=== PATIENT | male | born 1990 | race African-American/Black ===

== ENCOUNTER 2017-02-01 03:17 | Emergency (ER) | payer MEDICAID ==
--- NOTE | 2017-02-01 03:46 | ED Physician Chart ---
ED Chief Complaint/HPI - Patient Information Date Seen:: 02/01/17 Time Seen:: 03:35 Chief Complaint:: Toothache for 2 days. History of Present Illness:: Pt came in by private auto because of toothache in R lower jaw for 2 days. Pt denies fever. Taking po well without N/V/D. Last analgesic use with Aleve at about 6 pm yesterday. Allergies:: Allergies Allergy/AdvReac Type Severity Reaction Status Date / Time No Known Allergies Allergy Verified 02/01/17 03:24 Vitals:: Vital Signs - 8 hr 02/01/17 03:20 Temp 98.1 F HR 76 RR 18 BP 135/88 O2 Sat % 97 Historian:: Patient Family MD/PCP:: unknown LMP:: N/A Review:: Nurse's Note Reviewed ED Review of Systems - Review of Systems General/Constitutional: No fever, No chills, No weight loss, No weakness, No edema, No loss of appetite Skin: No skin lesions, No rash, No bruising Head: No headache, No light-headedness Eyes: No loss of vision, No pain, No diplopia ENT: No earache, No sore throat Neck: No neck pain, No swelling, No thyromegaly, No stiffness, No mass noted Cardio Vascular: No chest pain, No palpitations Pulmonary: No SOB, No cough, No wheezing GI: No nausea, No vomiting, No diarrhea, No pain G/U: No dysuria, No frequency, No hematuria Musculoskeletal: No bone or joint pain, No back pain Endocrine: No polyuria, No polydipsia Psychiatric: No prior psych history Hematopoietic: No bruising, No lymphadenopathy Allergic/Immuno: No urticaria, No angioedema Neurological: No syncope, No focal symptoms, No weakness, No paresthesia, No headache, No dizziness, No confusion ED Past Medical History - Past Medical History Past Medical History: No significant medical hx Family History: Diabetes Melitus (MGM, PGM), HTN (mother) Social History: Non Smoker, Alcohol (occasional), No Drug Use, Single, Employed , Other (lives with his sister) Employment:: surveyor's assistant. Surgical History: other (R hand surgery about 20 y/a.) Psychiatricy History: None Medication: Reviewed Family Medical History - Family Member Grandmother Ethnicity: Non- Hx Family Hypertension: Yes Hx Family Diabetes: Yes ED Physical Exam - Physical Examination General/Constitutional: Awake, Well-developed, well-nourished, Alert, No distress, GCS 15, Non-toxic appearing, Ambulatory Other Gen/Cons comments:: Breathes comfortably, speaks clearly, interacts normally, and ambulates without difficulty. Head: Atraumatic Eyes: Lids, conjuctiva normal, PERRL, EOMI Skin: Nl inspection, No rash, No skin lesions, No ecchymosis, Well hydrated, No lymphadenopathy ENMT: External ears, nose nl, Nasal exam nl, Oropharynx nl Other ENMT comments:: Black discoloration noticed in R lower 2nd molar tooth with tenderness. No gingival erythema or edema. No exudate. Neck: Nontender, Full ROM w/o pain, No nuchal rigidity, No mass, No stridor Respiratory: Nl effort/Exclusion, Clear to Auscultation, No Wheeze/Rhonchi/Rales Cardio Vascular: RRR, No murmur, gallop, rubs GI: No tenderness/rebounding/guarding, No organomegaly, Normal BS's, Nondistended Other GI comments:: Abdomen is soft. Extremities: No edema Neuro/Psych: Alert/oriented (oriented x 3), Mood normal, Normal gait, No focal deficits ED Septic Shock - . Is Septic Shock (SBP<90, OR Lactate>4 mmol\L) present?: No - <6hrs of presentation: Vital Signs: Vital Signs - 8 hr 02/01/ 03:20 Temp 98.1 F HR 76 RR 18 BP 135/88 O2 Sat % 97 ED Reassessment (Disposition) - Reassessment Reassessment:: 0400 Pt remains stable. Pt requests to leave now and prefers to take his medications at home. Aftercare instructions have been given. - Diagnosis Diagnosis:: Pulpitis in R lower 2nd molar tooth. Stable - Aftercare/Follow up Instructions Aftercare/Follow-Up Instructions:: Refer to Discharge Instructions Notes:: Avoid extreme hot or cold beverage or food. May continue Aleve as directed. F/U with dentist of pt's choice later today. Return to ER immediately if condition worsens or if any further questions/problems. Medication Prescribed:: Amoxicillin 500 mg tab one tab po q8h D-30 R-0 Tylenol #3 one tab po q6h prn severe pain only. D-5 R-0 Drowsiness precautions given with the use of Tylenol #3. Do not take acetaminophen containing medications such as Tylenol with the use of Tylenol #3 - Patient Disposition Discharge/Transfer:: Home Time:: 04:00 Condition at Disposition:: Stable ED Discharge Plan - Patient Disposition Admit/Discharge/Transfer: PT DISCHARGED HOME Condition at Disposition: Stable Prescriptions: Amoxicillin [Amoxicillin*] 500 mg PO Q8H #30 tab APAP/Codeine 300 mg/30 mg [Tylenol W/Codeine #3] 1 tab PO Q6H PRN #5 tab PRN Reason: Pain (Severe) Instructions: Dental Pain, [id number] Additional Instructions: Avoid hot and cold drinks and food. follow up with dentist of your choice later today. Be careful operating heavy machinery and do not drive when taking tylenol #3 as it can cause drowsiness Forms: Work Release Form
== END 2017-02-01 04:20 | disposition home or self-care (01) ==
LOC: ER 03:17
DX: K04.01 Reversible pulpitis (principal)
CPT/HCPCS: Z7502

== ENCOUNTER 2017-05-11 03:35 | Emergency (ER) | payer MEDICAID, OTHER ==
[2017-05-11] MEDS ORDERED: Sulfamethoxazole/TMP 800/160mg Tab PO ONE (04:02)
[2017-05-11] MEDS ORDERED: Sulfamethoxazole/TMP 800/160mg Tab ONE (04:03)
--- NOTE | 2017-05-11 04:09 | ED Physician Chart ---
ED Chief Complaint/HPI - Patient Information Date Seen:: 05/11/17 Time Seen:: 03:50 Chief Complaint:: painful mass right index History of Present Illness:: Patient's had a painful mass in his right axilla for 4 days. He had a subjective fever. Allergies:: Allergies Allergy/AdvReac Type Severity Reaction Status Date / Time No Known Allergies Allergy Verified 05/11/17 03:50 Vitals:: Vital Signs - 8 hr 05/11/17 03:40 Temp 97.8 F HR 60 RR 16 BP 131/77 O2 Sat % 99 Historian:: Patient Review:: Nurse's Note Reviewed ED Review of Systems - Review of Systems General/Constitutional: Fever Skin: Skin lesions Head: No headache Eyes: No loss of vision ENT: No earache Neck: No neck pain Cardio Vascular: No chest pain Pulmonary: No SOB GI: No nausea, No vomiting, No diarrhea G/U: No dysuria Musculoskeletal: No bone or joint pain Endocrine: No polyuria Psychiatric: No prior psych history Hematopoietic: No bruising Allergic/Immuno: No urticaria Neurological: No syncope, No focal symptoms ED Past Medical History - Past Medical History Past Medical History: No significant medical hx Family History: HTN Social History: Non Smoker, No Alcohol Surgical History: other (right hand) Psychiatricy History: None Medication: None Family Medical History - Family Member Grandmother History Unknown: Yes Ethnicity: Non- Hx Family Hypertension: Yes Hx Family Diabetes: Yes ED Physical Exam - Physical Examination General/Constitutional: Well-developed, well-nourished, No distress Head: Atraumatic Eyes: Lids, conjuctiva normal, PERRL Other Skin comments:: Right axilla: There is a soft tender 1 cm mass that appears to be about 3 mm below the surface. ENMT: External ears, nose nl Neck: No nuchal rigidity Respiratory: Nl effort/Exclusion, Clear to Auscultation, No Wheeze/Rhonchi/Rales Cardio Vascular: RRR, No murmur, gallop, rubs GI: No tenderness/rebounding/guarding : No CVA tenderness Extremities: No tenderness or effusion Neuro/Psych: Alert/oriented Misc: Normal back, No paraspinal tenderness ED Assessment - Assessment General Assessment: The abscess is small and fairly deep so incision and drainage appears unnecessary. I suggested patient apply warm compresses and prescribed Bactrim double strength one twice a day for 7 days. ED Septic Shock - . Is Septic Shock (SBP<90, OR Lactate>4 mmol\L) present?: No - <6hrs of presentation: Vital Signs: Vital Signs - 8 hr 05/11/17 03:40 Temp 97.8 F HR 60 RR 16 BP 131/77 O2 Sat % 99 ED Reassessment (Disposition) - Reassessment Reassessment Condition:: Unchanged - Diagnosis Diagnosis:: Abscess right axilla - Aftercare/Follow up Instructions Aftercare/Follow-Up Instructions:: Refer to Discharge Instructions Medication Prescribed:: Bactrim DS No. 14 one twice a day - Patient Disposition Discharge/Transfer:: Home Condition at Disposition:: Stable, Unchanged ED Discharge Plan - Patient Disposition Instructions: Abscess, Spider Bite, [id number] Additional Instructions: follow up with your primary medical doctor VICTORINA take prescribed medications as ordered
== END 2017-05-11 04:08 | disposition home or self-care (01) ==
LOC: ER 03:35
DX: L02.411 Cutaneous abscess of right axilla (principal)
CPT/HCPCS: Z7502